=== PATIENT | female | born 1975 | race Caucasian/White ===

== ENCOUNTER 2018-07-23 16:46 | Emergency (ER) | payer BC, OTHER ==
--- NOTE | 2018-07-23 17:21 | EDM.PDOC ---
ED HPI GENERAL MEDICAL PROBLEM - General Chief Complaint: Respiratory Problem Stated Complaint: SOB,COUGH Time Seen by Provider: 07/23/18 17:20 Source of Information: Reports: Patient History Limitations: Reports: No Limitations - History of Present Illness INITIAL COMMENTS - FREE TEXT/NARRATIVE: HISTORY AND PHYSICAL: History of present illness: Patient is a 42-year-old female here with complaint of cough x 6 days. She states she coughs up a bunch on phelgm in the mornings, has been feeling like she can't take a full breath. She felt feverish today with chills but denies nausea, vomiting, diarrhea, chest pain, abdominal pain. Denies significant past medication history. Smokes 1ppd x 20+ years. Review of systems: As per history of present illness and below otherwise all systems reviewed and negative. Past medical history: As per history of present illness and as reviewed below otherwise noncontributory. Surgical history: As per history of present illness and as reviewed below otherwise noncontributory. Social history: No reported history of drug or alcohol abuse. Family history: As per history of present illness and as reviewed below otherwise noncontributory. Physical exam: General: Patient sitting comfortably in no acute distress and nontoxic appearing HEENT: Atraumatic, normocephalic, pupils reactive, negative for conjunctival pallor or scleral icterus, mucous membranes moist, throat clear, neck supple, nontender, trachea midline. No meningeal signs. Lungs: Clear to auscultation, breath sounds equal bilaterally, chest nontender. Heart: S1S2, regular, negative for clicks, rubs, or overt murmur. Abdomen: Soft, nondistended, nontender. Negative for masses or hepatosplenomegaly. Negative for costovertebral tenderness. Pelvis: Stable nontender. Genitourinary: Deferred. Rectal: Deferred. Extremities: Atraumatic, negative for cords or calf pain. Neurovascular unremarkable. Neuro: Awake, alert, oriented. Cranial nerves II through XII unremarkable. Cerebellum unremarkable. Motor and sensory unremarkable throughout. Exam nonfocal. Notes: Diagnostics: Influenza, chest x-ray Therapeutics: None Prescriptions: Azithromycin, Medrol dosepak, ventolin inhaler Impression: Acute bronchitis Plan: 1. Take medications as instructed 2. Follow up with primary care provider 3. Return to ED as needed as discussed Definitive disposition and diagnosis as appropriate pending reevaluation and review of above. headache Pain Score (Numeric/FACES): 3 - Related Data Allergies Allergy/AdvReac Type Severity Reaction Status Date / Time umeclidinium Allergy Rash Verified 07/23/18 17:19 [From Anoro Ellipta] vilanterol Allergy Rash Verified 07/23/18 17:19 [From Anoro Ellipta] Home Meds: Home Meds Escitalopram [Lexapro] 20 mg PO DAILY 07/23/18 [History] hydrOXYzine HCl [hydrOXYzine] 1 tab PO ASDIRECTED 07/23/18 [History] Past Medical History HEENT History: Reports: Other (See Below) Other HEENT History: reading glasses, top and bottom dentures (only wears top denture) Respiratory History: Reports: Bronchitis, Recurrent Genitourinary History: Reports: None 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: Musculoskeletal History: Reports: Other (See Below) Other Musculoskeletal History: shouldr pain due to torn right rotator cuff Neurological History: Reports: Migraines, Other (See Below) Psychiatric History: Reports: Anxiety, Depression Endocrine/Metabolic History: Reports: None - Infectious Disease History Infectious Disease History: Reports: Chicken Pox - Past Surgical History Head Surgeries/Procedures: Reports: None HEENT Surgical History: Reports: Tonsillectomy Female Surgical History: Reports: Hysterectomy, Salpingo-Oophorectomy, Tubal Ligation Musculoskeletal Surgical History: Reports: Carpal Tunnel Other Musculoskeletal Surgeries/Procedures:: millie carpal tunnel, trigger finger release Social & Family History - Caffeine Use Caffeine Use: Reports: Coffee, Soda ED ROS GENERAL - Review of Systems Review Of Systems: ROS reveals no pertinent complaints other than HPI. ED EXAM, GENERAL - Physical Exam Exam: See Below (see dictation) Course - Vital Signs Last Recorded V/S: Last Vital Signs Temp 98.3 F 07/23/18 17:15 Pulse 87 07/23/18 17:15 Resp 18 07/23/18 17:15 BP 115/72 07/23/18 17:15 Pulse Ox 98 07/23/18 17:15 - Orders/Labs/Meds Orders: Active Orders 24 hr Category Date Time Status Chest 2V [CR] Stat Exams 07/23/18 17:19 Taken INFLUENZA A+B AG SCREEN [RM] Stat Lab 07/23/18 17:58 Received Departure - Departure Time of Disposition: 18:28 Disposition: Home, Self-Care 01 Condition: Good Clinical Impression: Acute bronchitis - Discharge Information Referrals: Guerrero Garcia Jr, PA-C [Primary Care Provider] - Forms: ED Department Discharge Additional Instructions: The following information is given to patients seen in the emergency department who are being discharged to home. This information is to outline your options for follow-up care. We provide all patients seen in our emergency department with a follow-up referral. The need for follow-up, as well as the timing and circumstances, are variable depending upon the specifics of your emergency department visit. If you don't have a primary care physician on staff, we will provide you with a referral. We always advise you to contact your personal physician following an emergency department visit to inform them of the circumstance of the visit and for follow-up with them and/or the need for any referrals to a consulting specialist. The emergency department will also refer you to a specialist when appropriate. This referral assures that you have the opportunity for follow-up care with a specialist. All of these measure are taken in an effort to provide you with optimal care, which includes your follow-up. Under all circumstances we always encourage you to contact your private physician who remains a resource for coordinating your care. When calling for follow-up care, please make the office aware that this follow-up is from your recent emergency room visit. If for any reason you are refused follow-up, please contact the [facility] Emergency Department at and asked to speak to the emergency department charge nurse. [facility] [address] [place] [address] [id number] [address] [address] 1. Take medications as instructed 2. Follow up with primary care provider 3. Return to ED as needed as discussed - My Orders Last 24 Hours: My Active Orders 07/23/18 17:19 Chest 2V [CR] Stat 07/23/18 17:58 INFLUENZA A+B AG SCREEN [RM] Stat - Assessment/Plan Last 24 Hours: My Active Orders 07/23/18 17:19 Chest 2V [CR] Stat 07/23/18 17:58 INFLUENZA A+B AG SCREEN [RM] Stat
--- NOTE | 2018-07-23 18:33 | CR ---
INDICATION: COUGH. SICK starting last Wednesday. TECHNIQUE PA AND LATERAL chest x-ray. FINDINGS: Mild increased soft tissue convexity along the right lower heart border may be a cardiac fat pad is not specific. No focal infiltrate or consolidation either lung. Heart is normal in size. Mild AC separation on the left with slight superior subluxation of the left lateral clavicle with regard to the acromion likely related prior trauma. Chest otherwise negative without acute disease. Dictated by Tho Short MD @ Jul 23 2018 6:31PM Signed by Dr. Tho Short @ Jul 23 2018 6:31PM
[2018-07-23 18:48] VITALS: BP 127/70
== END 2018-07-23 18:45 | disposition home or self-care (01) ==
LOC: MW.ED 16:46
DX: J20.9 Acute bronchitis, unspecified (principal); Z88.8 Allergy status to other drugs, medicaments and biological substances
CPT/HCPCS: 71046; 71046-26; 87804; 99283

== ENCOUNTER 2018-09-14 06:19 | Day surgery (SDC) | payer BC ==
--- NOTE | 2018-09-14 07:06 | PCM.PREANE ---
Preanesthetic Assessment - Anesthesia/Transfusion/Family Hx Anesthesia History: Prior Anesthesia Without Reaction Family History of Anesthesia Reaction: No Transfusion History: No Prior Transfusion(s) Intubation History: Unknown - Review of Systems General: No Symptoms Pulmonary: No Symptoms Cardiovascular: No Symptoms Gastrointestinal: No Symptoms Neurological: No Symptoms Other: Reports: None - Physical Assessment NPO Status Date: 09/13/18 NPO Status Time: 23:00 O2 Sat by Pulse Oximetry: 95 Respiratory Rate: 16 Vital Signs: Last Vital Signs Temp 97.3 F 09/14/18 06:50 Pulse 72 09/14/18 06:50 Resp 16 09/14/18 06:50 BP 102/65 09/14/18 06:50 Pulse Ox 95 09/14/18 06:50 Height: 5 ft 3 in Weight: 79.379 kg ASA Class: 2 Mental Status: Alert & Oriented x3 Airway Class: Mallampati = 2 Dentition: Reports: Dentures ROM/Head Extension: Full Lungs: Clear to Auscultation, Normal Respiratory Effort Cardiovascular: Regular Rate, Regular Rhythm - Allergies Allergies/Adverse Reactions: Allergies Allergy/AdvReac Type Severity Reaction Status Date / Time umeclidinium Allergy Rash Verified 09/09/18 09:05 [From Anoro Ellipta] vilanterol Allergy Rash Verified 09/09/18 09:05 [From Anoro Ellipta] - Blood Blood Available: No - Anesthesia Plan Pre-Op Medication Ordered: None - Acknowledgements Anesthesia Type Planned: MAC Pt an Appropriate Candidate for the Planned Anesthesia: Yes Alternatives and Risks of Anesthesia Discussed w Pt/Guardian: Yes Pt/Guardian Understands and Agrees with Anesthesia Plan: Yes Additional Comments: PMH: anx/ dep and healaches- all resolved significantly since started on lexapro PLAN: mac PreAnesthesia Questionnaire HEENT History: Reports: None Other HEENT History: reading glasses, top and bottom dentures (only wears top denture) Respiratory History: Reports: Bronchitis, Recurrent Genitourinary History: Reports: None SPACE OPERATIONS History: Reports: Musculoskeletal History: Reports: Other (See Below) Other Musculoskeletal History: shouldr pain due to torn right rotator cuff Neurological History: Reports: Migraines, Other (See Below) Psychiatric History: Reports: Anxiety, Depression Endocrine/Metabolic History: Reports: Obesity/BMI 30+ - Infectious Disease History Infectious Disease History: Reports: Chicken Pox - Past Surgical History HEENT Surgical History: Reports: Tonsillectomy Female Surgical History: Reports: Hysterectomy, Salpingo-Oophorectomy, Tubal Ligation Musculoskeletal Surgical History: Reports: Carpal Tunnel, Shoulder Surgery, Other (See Below) Other Musculoskeletal Surgeries/Procedures:: Left shoulder biceps tendon repair , previous right hand ring finger trigger release, bilateral CTR - SUBSTANCE USE Smoking Status *Q: Current Every Day Smoker Tobacco Use Within Last Twelve Months: Cigarettes Recreational Drug Use History: Yes - HOME MEDS Home Medications: Home Meds Escitalopram [Lexapro] 20 mg PO BEDTIME 07/23/18 [History] Doxepin [SINEquan] 10 mg PO BEDTIME 09/09/18 [History] - CURRENT (IN HOUSE) MEDS Current Meds: Current Medications Bupivacaine HCl/Epinephrine Bitart (Marcaine 0.25%/Epinephrine 1:200,000) 10 ml INJECT ONETIME ONE Stop: 09/14/18 08:01 Cefazolin Sodium/Dextrose 2 gm (/ Premix) 50 mls @ 100 mls/hr IV ONETIME ONE Stop: 09/14/18 08:29 Lactated Ringer's (Ringers, Lactated) 1,000 mls @ 125 mls/hr IV ASDIRECTED KATIE Last Admin: 09/14/18 07:00 Dose: 125 mls/hr
[2018-09-14] MEDS ORDERED: Bupivacaine 0.25%/EPINEPHrine 1:200,000 10 ML SDV ONE (07:13)
[2018-09-14] MEDS ORDERED: Propofol 200 MG/20 ML SDV ONE (07:18)
[2018-09-14] MEDS ORDERED: fentaNYL 250 MCG/5 ML SDV ONE (07:18)
[2018-09-14] MEDS ORDERED: Midazolam 1 MG/ML 2 ML SDV ONE (07:21)
[2018-09-14] MEDS ORDERED: Lactated Ringers 1,000 ML IV SCH (08:00)
[2018-09-14] MEDS ORDERED: ceFAZolin/Dextrose,Iso-Osmotic 2 GM/50 ML Duplex Bag IV ONE (08:00)
[2018-09-14] MEDS ORDERED: Bupivacaine 0.25%/EPINEPHrine 1:200,000 10 ML SDV INJECT ONE (08:00)
[2018-09-14] MEDS ORDERED: ceFAZolin 2 GM in Premix Bag 1 BAG IV ONE (08:00)
--- NOTE | 2018-09-14 08:46 | PCM.POSTAN ---
POST ANESTHESIA ASSESSMENT - MENTAL STATUS Mental Status: Alert, Oriented - RESPIRATORY Respiratory Status: Respiratory Rate WNL, Airway Patent, O2 Saturation Stable - CARDIOVASCULAR CV Status: Pulse Rate WNL, Blood Pressure Stable - GASTROINTESTINAL GI Status: No Symptoms - POST OP HYDRATION Hydration Status: Adequate & Stable
--- NOTE | 2018-09-14 08:46 | PCM48HPAN ---
Post Anesthesia Note - EVALUATION WITHIN 48HRS OF ANESTHETIC Vital Signs in Normal Range: Yes Patient Participated in Evaluation: Yes Respiratory Function Stable: Yes Airway Patent: Yes Cardiovascular Function Stable: Yes Hydration Status Stable: Yes Pain Control Satisfactory: Yes Nausea and Vomiting Control Satisfactory: Yes Mental Status Recovered: Yes Resp Rate: 11
[2018-09-14 11:28] VITALS: BP 118/72
--- NOTE | 2018-09-15 08:12 | PCM.OPNOTE ---
- General Post-Op/Procedure Note Date of Surgery/Procedure: 09/15/18 Operative Procedure(s): release of right middle finger trigger finger Pre Op Diagnosis: right middle finger trigger finger Post-Op Diagnosis: Same Anesthesia Technique: Local, MAC Primary Surgeon: Shy Dillard Financial Aid Counselor: Maria Dolores Starks Complications: None Condition: Good
--- NOTE | 2018-09-15 14:40 | OR ---
SURGEON: ISELA GUERRA MD DATE OF PROCEDURE: 09/14/2018 PREOPERATIVE DIAGNOSIS: Right middle finger trigger finger. POSTOPERATIVE DIAGNOSIS: Right middle finger trigger finger. PROCEDURE: Release of right middle finger trigger finger. UNINDENTURED APPRENTICE: KOKI Crowder. REASON FOR AND ROLE OF UNINDENTURED APPRENTICE: Retraction, prepping, draping, positioning and closure assistance. ANESTHESIA: Local MAC. INDICATIONS: Ms. Murphy is a 42-year-old female seen today in evaluation for right middle finger trigger finger. She has had several trigger fingers before and then she has failed conservative management. She would like to proceed. PROCEDURE IN DETAIL: After informed consent was obtained and placed on the chart, the patient was brought to the operating theater and laid in supine position. After informed consent was obtained, the area was prepped and draped, and time-out was completed to confirm side and site. 0.25% Marcaine with epinephrine was injected into a digital block. After adequate anesthesia, a #15 blade was used to dissect through the skin through the subcutaneous tissues until breach of the ligament. The ligament was dissected distally and proximally under direct visualization. Once adequately released, the wound was copiously irrigated and closed using 5-0 nylon stitch in a horizontal mattress fashion. The wound was dressed with Xeroform, fluffs, and a Kerlix gauze dressing and 2-inch Dereck wrap. The patient tolerated this well. All counts and needles were correct at the end of the case. FOLLOWUP INSTRUCTIONS: The patient was given a prescription for pain control, though she did have problems initially getting this under control previously. We did instruct use of ibuprofen and Tylenol [id number] as well as needed as well as other modalities. All questions answered. Discharged home in stable condition. STEVEN / RODRIGO /[id number]
== END 2018-09-14 10:00 | disposition home or self-care (01) ==
LOC: MW.SDS 06:19
PROVIDERS: ATTEND Plastic Surgery
DX: M65.331 Trigger finger, right middle finger (principal); F17.210 Nicotine dependence, cigarettes, uncomplicated; F41.9 Anxiety disorder, unspecified; F32.9 Major depressive disorder, single episode, unspecified; Z88.8 Allergy status to other drugs, medicaments and biological substances; Z79.899 Other long term (current) drug therapy
CPT/HCPCS: 26055; J0690; J2250; J2704; J3010; J3490; J7120; 01810

== ENCOUNTER 2019-03-22 06:58 | Day surgery (SDC) | payer BC ==
[2019-03-22] MEDS ORDERED: Midazolam 1 MG/ML 2 ML SDV ONE (07:34)
[2019-03-22] MEDS ORDERED: Propofol 200 MG/20 ML SDV ONE (07:34)
[2019-03-22] MEDS ORDERED: fentaNYL 100 MCG/2 ML SDV ONE (07:34)
[2019-03-22] MEDS ORDERED: Bupivacaine 0.5% 30 ML SDV ONE (07:43)
[2019-03-22] MEDS ORDERED: fentaNYL 100 MCG/2 ML SDV IVPUSH PRN (07:53)
[2019-03-22] MEDS ORDERED: Lactated Ringers 1,000 ML IV SCH (08:00)
--- NOTE | 2019-03-22 08:17 | PCM.PREANE ---
Preanesthetic Assessment - Anesthesia/Transfusion/Family Hx Anesthesia History: Prior Anesthesia Without Reaction Family History of Anesthesia Reaction: No Transfusion History: No Prior Transfusion(s) Intubation History: Unknown - Review of Systems General: No Symptoms Pulmonary: No Symptoms Cardiovascular: No Symptoms Gastrointestinal: No Symptoms Neurological: No Symptoms Other: Reports: None - Physical Assessment Vital Signs: Last Vital Signs Temp 36.8 C 03/22/19 07:52 Pulse 67 03/22/19 07:52 Resp 16 03/22/19 07:52 BP 113/64 03/22/19 07:52 Pulse Ox 96 03/22/19 07:52 Height: 5 ft 3 in Weight: 79.379 kg ASA Class: 2 Mental Status: Alert & Oriented x3 Airway Class: Mallampati = 2 Dentition: Reports: Normal Dentition Thyro-Mental Finger Breadths: 3 Mouth Opening Finger Breadths: 3 ROM/Head Extension: Full Lungs: Clear to Auscultation, Normal Respiratory Effort Cardiovascular: Regular Rate, Regular Rhythm - Allergies Allergies/Adverse Reactions: Allergies Allergy/AdvReac Type Severity Reaction Status Date / Time diclofenac Allergy Rash Verified 03/20/19 11:41 umeclidinium Allergy Rash Verified 03/20/19 11:41 [From Anoro Ellipta] vilanterol Allergy Rash Verified 03/20/19 11:41 [From Anoro Ellipta] - Blood Blood Available: No - Anesthesia Plan Pre-Op Medication Ordered: None - Acknowledgements Anesthesia Type Planned: MAC Pt an Appropriate Candidate for the Planned Anesthesia: Yes Alternatives and Risks of Anesthesia Discussed w Pt/Guardian: Yes Pt/Guardian Understands and Agrees with Anesthesia Plan: Yes PreAnesthesia Questionnaire HEENT History: Reports: Allergic Rhinitis, Other (See Below) Other HEENT History: reading glasses, top and bottom dentures (only wears top denture) Respiratory History: Reports: Bronchitis, Recurrent Genitourinary History: Reports: None 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: Musculoskeletal History: Reports: Other (See Below) Other Musculoskeletal History: shoulder pain due to torn right rotator cuff, left ring trigger finger Neurological History: Reports: Migraines Psychiatric History: Reports: Anxiety, Depression Endocrine/Metabolic History: Reports: Obesity/BMI 30+ - Infectious Disease History Infectious Disease History: Reports: Chicken Pox - Past Surgical History Head Surgeries/Procedures: Reports: None HEENT Surgical History: Reports: Tonsillectomy Female Surgical History: Reports: Hysterectomy, Salpingo-Oophorectomy, Tubal Ligation Musculoskeletal Surgical History: Reports: Carpal Tunnel, Shoulder Surgery, Other (See Below) Other Musculoskeletal Surgeries/Procedures:: Left shoulder biceps tendon repair , previous right hand ring and middle finger trigger release, bilateral CTR - SUBSTANCE USE Smoking Status *Q: Current Every Day Smoker Tobacco Use Within Last Twelve Months: Cigarettes Recreational Drug Use History: No - HOME MEDS Home Medications: Home Meds Escitalopram [Lexapro] 20 mg PO BEDTIME 07/23/18 [History] - CURRENT (IN HOUSE) MEDS Current Meds: Current Medications Fentanyl (Sublimaze) 50 - 100 mcg IVPUSH Q5M PRN PRN Reason: Pain (severe 7-10) Last Admin: 03/22/19 08:05 Dose: 50 mcg Lactated Ringer's (Ringers, Lactated) 1,000 mls @ 125 mls/hr IV ASDIRECTED KATIE Last Admin: 03/22/19 07:40 Dose: 125 mls/hr Discontinued Medications Bupivacaine HCl (Marcaine 0.5%) Confirm Administered Dose 30 ml .ROUTE .STK-MED ONE Stop: 03/22/19 07:44 Fentanyl (Sublimaze) Confirm Administered Dose 100 mcg .ROUTE .STK-MED ONE Stop: 03/22/19 07:35 Midazolam HCl (Versed 1 Mg/Ml) Confirm Administered Dose 2 mg .ROUTE .STK-MED ONE Stop: 03/22/19 07:35 Propofol (Diprivan 20 Ml) Confirm Administered Dose 400 mg .ROUTE .STK-MED ONE Stop: 03/22/19 07:35
[2019-03-22] MEDS ORDERED: ceFAZolin 1 GM Vial ONE (09:00)
[2019-03-22] MEDS ORDERED: Sodium Chloride 0.9% 20 ML ONE (09:00)
--- NOTE | 2019-03-22 09:31 | PCM.OPNOTE ---
- General Post-Op/Procedure Note Date of Surgery/Procedure: 03/22/19 Operative Procedure(s): left ring finger trigger finger release Pre Op Diagnosis: left ring finger trigger ringer Anesthesia Technique: Local, MAC Primary Surgeon: Sudhakar Mcgill Negotiator: Tracy Alvarado EBL in mLs: 0 Complications: None Condition: Good
--- NOTE | 2019-03-22 10:39 | PCM48HPAN ---
Post Anesthesia Note - EVALUATION WITHIN 48HRS OF ANESTHETIC Vital Signs in Normal Range: Yes Patient Participated in Evaluation: Yes Respiratory Function Stable: Yes Airway Patent: Yes Cardiovascular Function Stable: Yes Hydration Status Stable: Yes Pain Control Satisfactory: Yes Nausea and Vomiting Control Satisfactory: Yes Mental Status Recovered: Yes Vital Signs: Last Vital Signs Temp 36.8 C 03/22/19 07:52 Pulse 61 03/22/19 09:54 Resp 14 03/22/19 09:54 BP 122/69 03/22/19 09:54 Pulse Ox 94 L 03/22/19 09:54 - COMMENTS/OBSERVATIONS Free Text/Narrative:: no anesthesia problems
--- NOTE | 2019-03-22 10:39 | PCM.POSTAN ---
POST ANESTHESIA ASSESSMENT - MENTAL STATUS Mental Status: Alert, Oriented - VITAL SIGNS Vital Signs: Last Vital Signs Temp 36.8 C 03/22/19 07:52 Pulse 61 03/22/19 09:54 Resp 14 03/22/19 09:54 BP 122/69 03/22/19 09:54 Pulse Ox 94 L 03/22/19 09:54 - RESPIRATORY Respiratory Status: Respiratory Rate WNL, Airway Patent, O2 Saturation Stable - CARDIOVASCULAR CV Status: Pulse Rate WNL, Blood Pressure Stable - GASTROINTESTINAL GI Status: No Symptoms - PAIN Pain Score: 0 - POST OP HYDRATION Hydration Status: Adequate & Stable - OBSERVATIONS Free Text/Narrative:: no anesthesia problems
[2019-03-22 11:42] VITALS: BP 130/63; PULSE 67
--- NOTE | 2019-03-24 11:59 | OR ---
SURGEON: Sudhakar Mcgill DO DATE OF PROCEDURE: 03/22/2019 PREOPERATIVE DIAGNOSIS: Left ring trigger finger. POSTOPERATIVE DIAGNOSIS: Left ring trigger finger. PROCEDURE: Left ring finger trigger finger release. PRIMARY SURGEON: Sudhakar Mcgill DO BAR TACKER: LINCOLN Marquis Nurse practitioner, LINCOLN Marquis, played an essential role in assisting in this case, helping to position the patient, retract structures as needed, as well as suturing and cutting sutures as indicated. Her presence improved patient's safety and decreased operative time. ANESTHESIA: MAC local. FLUID: Lactated Ringer solution. ESTIMATED BLOOD LOSS: 0. COMPLICATIONS: None. SPECIMENS: None. DISCHARGE DISPOSITION: Stable to the PACU. HISTORY AND INDICATIONS FOR THE PROCEDURE: The patient was seen preoperatively in the clinic. She had had some triggering of her left ring finger for some time. She had previous trigger fingers released in the past and was very familiar with the procedure. Risks and goals of the procedure were explained to the patient. Informed consent was obtained. DETAILS OF PROCEDURE: The patient was seen preoperatively by myself and Anesthesia staff in the preoperative holding area, where the operative site was marked. She was brought to the operative suite by Anesthesia staff, where a well-padded tourniquet was placed on her left forearm. MAC local anesthesia was administered. The left upper extremity was then prepped and draped in a sterile manner. A time-out was called, identifying the correct patient, the correct procedure, the correct site, and that antibiotics had been given in an appropriate period of time. I injected local around my incision site, which was over the A1 yamila, which was palpable on the left 4th ray. I then made a longitudinal incision approximately 1.5 cm and then used a self-retaining retractor. I then used my 15 blade to clear off the soft tissue over the A1 yamila. The A1 yamila was then identified and then incised through its length. After this had been accomplished, I release my retractor, then copiously irrigated with saline, and then closed with 3-0 nylon in a horizontal mattress manner. We then placed Betadine-soaked Adaptic sponges and an Dereck wrap. The patient was allowed to wake up from MAC anesthesia. The tourniquet was let down, and the patient was allowed to go to the PACU in stable condition. [id number] / MODL /[id number]
== END 2019-03-22 11:00 | disposition home or self-care (01) ==
LOC: MW.SDS 06:58
PROVIDERS: ATTEND Orthopaedic Surgery
DX: M65.342 Trigger finger, left ring finger (principal); M19.019 Primary osteoarthritis, unspecified shoulder; G43.909 Migraine, unspecified, not intractable, without status migrainosus; F17.210 Nicotine dependence, cigarettes, uncomplicated; F41.9 Anxiety disorder, unspecified; F32.9 Major depressive disorder, single episode, unspecified; Z88.8 Allergy status to other drugs, medicaments and biological substances
CPT/HCPCS: 26055; J0690; J2250; J2704; J3010; J3490; J7120

== ENCOUNTER 2020-01-23 12:00 | Day surgery (SDC) | payer BC, MEDICAID ==
[2020-01-23] MEDS ORDERED: Iopamidol 200-M 10 ML vial ITHECAL ONE (13:30)
[2020-01-23] MEDS ORDERED: Lidocaine 2% 5 ML SDV INJECT ONE (13:30)
[2020-01-23] MEDS ORDERED: Ropivacaine 0.5% 5 MG/ML 30 ML SDV INJECT ONE (13:30)
[2020-01-23] MEDS ORDERED: Betamethasone Acetate/Betamethasone Sod Phosphate 30 MG/5 ML MDV EPIDUR ONE (13:30)
--- NOTE | 2020-01-23 17:16 | OR ---
SURGEON: Elif Everett D.O. DATE OF PROCEDURE: 01/23/2020 PRIMARY SURGEON: Elif Everett D.O. ASSISTANTS: OR Staff Present: 1. Owen Malave RN. 2. Luis Manuel Frye RN. 3. Luis Manuel Ragland, RT. WOUND CLASS: I. PREOPERATIVE DIAGNOSES: 1. Lumbar degenerative disk disease, L5-S1. 2. Left S1 radiculopathy. POSTOPERATIVE DIAGNOSES: 1. Lumbar degenerative disk disease, L5-S1. 2. Left S1 radiculopathy. PROCEDURES PERFORMED: 1. Left transforaminal epidural steroid injection. 2. Fluoroscopic guidance for needle placement. 3. Local with oral Valium for sedation. SCREENING QUESTIONS: The patient answered "no" to all of the following questions: 1. Are you allergic to iodine, Betadine or latex? 2. Do you have a bleeding disorder? 3. Do you have any joint replacements, heart valve replacements, or a pacemaker? 4. Are you allergic to anti-inflammatories or blood thinners? 5. Do you have any current local or systemic infections? MEDICAL NECESSITY: This is a patient with a history of chronic low back pain and lower extremity radicular pain in the above dermatomal pattern that comes in for the above diagnostic and therapeutic procedure. Pertinent positives and negatives for this suspected disease process along with the diagnostic findings and testing are in the patient's history and physical exam. The most salient feature includes radicular pain in the above dermatomal pattern. The patient had failed attempts at conservative therapy including physical therapy, nonsteroidal anti- inflammatory drugs, and other medications. No contraindications to perform this procedure including medical, no bleeding disorders or infections, no psychological, no antisocial personality disorder or active addiction disorder. There are no work-related issues, and, in general, the patient does not have any history of multiple prior interventions, surgeries or nerve blocks which have failed to return the patient to function. The patient's other symptoms to be treated include numbness, paresthesia, dysesthesia or hypoesthesia referred into the left lower extremity or any weakness in the involved myotome. This procedure is being performed in accordance with national guidelines as written by the [employer] ([place]). DESCRIPTION OF PROCEDURE: The patient had the procedure thoroughly explained including risks, benefits and alternatives. Consent was signed in my clinic indicating understanding and willingness to proceed. The patient presented to [facility] [place] where the patient was escorted to the dressing room to disrobe and change into a hospital gown. Preoperative vital signs were taken and stable. The patient reported that Valium was taken prior to the procedure. The patient was brought to the procedure room and placed in the prone position on the table. A pillow was placed under the abdomen in order to flatten the lumbar lordosis. The back was prepped with ChloraPrep and sterilely draped. All personnel in the operating room were dressed in appropriate attire including surgical scrubs, head and shoe covers. This was to ensure sterility while in the treatment room. During the time fluoroscopy was in use, all personnel in the operating room wore lead salas with thyroid collars. Sterile technique was used during the procedure. The fluoroscope was placed for the left transforaminal epidural steroid injection. There was no sign of infection at the skin site for needle insertion. The skin was anesthetized with 2% lidocaine with a 27 gauge 1-1/2 inch needle. Then a 22 gauge 3-1/2 inch spinal needle, advanced to the left. Under direct fluoroscopic guidance needle position was verified in three views; AP, oblique and lateral, with 0.2 cubic centimeters increments of Isovue-200 dye. No intravascular flow pattern was observed under live fluoroscopy. Then 12 milligrams of Celestone was slowly injected after negative aspiration of heme, cerebrospinal fluid and no paresthesias were noted. The needle was cleared prior to removal from the skin. No adverse reactions were noted. The patient was brought to the recovery room awake and in good condition by my staff. The patient was monitored and discharge instructions were given after a brief stay in the recovery area. Both oral and written discharge and follow up instructions were given. The patient will follow up in the clinic in 3-4 weeks post procedure to evaluate the efficacy. The patient verbalized understanding including understanding of those signs and symptoms that would require emergency care and knows how to contact the office if there are any problems or questions in the meantime. PREOPERATIVE PAIN: 6/10 POSTOPERATIVE PAIN: 0/10 FOLLOWUP: In the Pain Clinic in one month. HOGLCHR / ELVERL /[id number]
== END 2020-01-23 14:35 | disposition home or self-care (01) ==
LOC: MW.SDS 12:00
PROVIDERS: ATTEND Anesthesiology
DX: M51.16 Intervertebral disc disorders with radiculopathy, lumbar region (principal); F41.9 Anxiety disorder, unspecified; F32.9 Major depressive disorder, single episode, unspecified; F17.210 Nicotine dependence, cigarettes, uncomplicated; M47.27 Other spondylosis with radiculopathy, lumbosacral region; M48.061 Spinal stenosis, lumbar region without neurogenic claudication; Q76.49 Other congenital malformations of spine, not associated with scoliosis; Z88.8 Allergy status to other drugs, medicaments and biological substances; Z79.899 Other long term (current) drug therapy
CPT/HCPCS: 64483; J0702; J2001; J2795; Q9966

== ENCOUNTER 2020-02-22 12:06 | Day surgery (SDC) | payer BC, MEDICAID ==
[2020-02-22] MEDS ORDERED: Lidocaine 2% 5 ML SDV INJECT ONE (13:30)
[2020-02-22] MEDS ORDERED: Betamethasone Acetate/Betamethasone Sod Phosphate 30 MG/5 ML MDV EPIDUR ONE (13:30)
[2020-02-22] MEDS ORDERED: Iopamidol 200-M 10 ML vial ITHECAL ONE (13:30)
[2020-02-22] MEDS ORDERED: Ropivacaine 0.5% 5 MG/ML 30 ML SDV INJECT ONE (13:30)
--- NOTE | 2020-02-22 19:51 | OR ---
SURGEON: Elif Everett D.O. DATE OF PROCEDURE: 02/22/2020 PRIMARY SURGEON: Eilf Everett DO ASSISTANTS: OR staff present: 1. Tori Gutiérrez RN. 2. Luis Manuel Frye RN. 3. Bolivar Ballesteros RT. WOUND CLASS: I. PREOPERATIVE DIAGNOSES: 1. Lumbar degenerative disk disease, L4-5 and L5-S1. 2. Lumbar radiculopathy, L5-S1, bilateral lower extremities. 3. Chronic pain syndrome. POSTOPERATIVE DIAGNOSES: 1. Lumbar degenerative disk disease, L4-5 and L5-S1. 2. Lumbar radiculopathy, L5-S1, bilateral lower extremities. 3. Chronic pain syndrome. PROCEDURES PERFORMED: 1. Left S1 transforaminal epidural steroid injection. 2. Fluoroscopic guidance for needle placement. 3. Local with oral Valium for sedation. SCREENING QUESTIONS: The patient answered "no" to all of the following questions: 1. Are you allergic to iodine, Betadine or latex? 2. Do you have a bleeding disorder? 3. Do you have any joint replacements, heart valve replacements, or a pacemaker? 4. Are you allergic to anti-inflammatories or blood thinners? 5. Do you have any current local or systemic infections? MEDICAL NECESSITY: This is a patient with a history of chronic low back pain and lower extremity radicular pain in the above dermatomal pattern that comes in for the above diagnostic and therapeutic procedure. Pertinent positives and negatives for this suspected disease process along with the diagnostic findings and testing are in the patient's history and physical exam. The most salient feature includes radicular pain in the above dermatomal pattern. The patient had failed attempts at conservative therapy including physical therapy, nonsteroidal anti- inflammatory drugs, and other medications. No contraindications to perform this procedure including medical, no bleeding disorders or infections, no psychological, no antisocial personality disorder or active addiction disorder. There are no work-related issues, and, in general, the patient does not have any history of multiple prior interventions, surgeries or nerve blocks which have failed to return the patient to function. The patient's other symptoms to be treated include numbness, paresthesia, dysesthesia or hypoesthesia referred into the left lower extremity or any weakness in the involved myotome. This procedure is being performed in accordance with national guidelines as written by the International [employer] ([place]). DESCRIPTION OF PROCEDURE: The patient had the procedure thoroughly explained including risks, benefits and alternatives. Consent was signed in my clinic indicating understanding and willingness to proceed. The patient presented to [facility] [place] where the patient was escorted to the dressing room to disrobe and change into a hospital gown. Preoperative vital signs were taken and stable. The patient reported that Valium was taken prior to the procedure. The patient was brought to the procedure room and placed in the prone position on the table. A pillow was placed under the abdomen in order to flatten the lumbar lordosis. The back was prepped with ChloraPrep and sterilely draped. All personnel in the operating room were dressed in appropriate attire including surgical scrubs, head and shoe covers. This was to ensure sterility while in the treatment room. During the time fluoroscopy was in use, all personnel in the operating room wore lead salas with thyroid collars. Sterile technique was used during the procedure. The fluoroscope was placed for the left S1 transforaminal epidural steroid injection. There was no sign of infection at the skin site for needle insertion. The skin was anesthetized with 2% lidocaine with a 27 gauge 1-1/2 inch needle. Then, a 22 gauge 3-1/2 inch spinal needle, advanced to the left S1. Under direct fluoroscopic guidance needle position was verified in three views; AP, oblique and lateral, with 0.2 cubic centimeters increments of Isovue- 200 dye. No intravascular flow pattern was observed under live fluoroscopy. Then 12 milligrams of Celestone was slowly injected after negative aspiration of heme, cerebrospinal fluid and no paresthesias were noted. The needle was cleared prior to removal from the skin. No adverse reactions were noted. The patient was brought to the recovery room awake and in good condition by my staff. The patient was monitored and discharge instructions were given after a brief stay in the recovery area. Both oral and written discharge and follow up instructions were given. The patient will follow up in the clinic in 3-4 weeks post procedure to evaluate the efficacy. The patient verbalized understanding including understanding of those signs and symptoms that would require emergency care and knows how to contact the office if there are any problems or questions in the meantime. PREOPERATIVE PAIN: 5/10. POSTOPERATIVE PAIN: 0/10. FOLLOWUP: In the Pain Clinic in 3 weeks. HUSSEIN / MODL /[id number]
== END 2020-02-22 14:34 ==
LOC: MW.SDS 12:06
PROVIDERS: ATTEND Anesthesiology
DX: G89.4 Chronic pain syndrome (principal); M51.16 Intervertebral disc disorders with radiculopathy, lumbar region; M48.061 Spinal stenosis, lumbar region without neurogenic claudication; F41.9 Anxiety disorder, unspecified; F32.9 Major depressive disorder, single episode, unspecified; F17.210 Nicotine dependence, cigarettes, uncomplicated; M47.27 Other spondylosis with radiculopathy, lumbosacral region; Q76.49 Other congenital malformations of spine, not associated with scoliosis; Z88.8 Allergy status to other drugs, medicaments and biological substances; Z79.899 Other long term (current) drug therapy

== ENCOUNTER 2020-04-04 10:40 | Day surgery (SDC) | payer BC, MEDICAID ==
[2020-04-04] MEDS ORDERED: Iopamidol 200-M 10 ML vial ITHECAL ONE (12:30)
[2020-04-04] MEDS ORDERED: Ropivacaine 0.5% 5 MG/ML 30 ML SDV INJECT ONE (12:30)
[2020-04-04] MEDS ORDERED: Lidocaine 2% 5 ML SDV INJECT ONE (12:30)
[2020-04-04] MEDS ORDERED: Betamethasone Acetate/Betamethasone Sod Phosphate 30 MG/5 ML MDV EPIDUR ONE (12:30)
--- NOTE | 2020-04-04 16:56 | OR ---
SURGEON: Elif Everett D.O. DATE OF PROCEDURE: 04/04/2020 I had the pleasure of seeing Eliana Murphy today. PRIMARY SURGEON: Elif Everett DO ASSISTANTS: OR staff present: 1. Owen Malave RN. 2. Sigifredo Edwards RN. 3. Bolivar Echeverria, RT. WOUND CLASS: I. PREOPERATIVE DIAGNOSES: 1. Lumbar degenerative disk disease, L4-5 and L5-S1. 2. Lumbar spinal stenosis. 3. Lumbar spondylosis. 4. Chronic low back pain with bilateral lower extremity radiculopathy. 5. Transitional vertebrae, L5-S1, with left-sided wedged transverse process. POSTOPERATIVE DIAGNOSES: 1. Lumbar degenerative disk disease, L4-5 and L5-S1. 2. Lumbar spinal stenosis. 3. Lumbar spondylosis. 4. Chronic low back pain with bilateral lower extremity radiculopathy. 5. Transitional vertebrae, L5-S1, with left-sided wedged transverse process. PROCEDURES PERFORMED: 1. Right L5 transforaminal epidural steroid injection. 2. Right S1 transforaminal epidural steroid injection. 3. Fluoroscopic guidance for needle placement. 4. Local with oral Valium for sedation. SCREENING QUESTIONS: The patient answered "no" to all of the following questions: 1. Are you allergic to iodine, Betadine or latex? 2. Do you have a bleeding disorder? 3. Do you have any joint replacements, heart valve replacements, or a ESCRIPTION OF PROCEDURE: The patient had the procedure thoroughly explained including risks, benefits and alternatives. Consent was signed in my clinic indicating understanding and willingness to proceed. The patient presented to [facility] [place] where the patient was escorted to the dressing room to disrobe and change into a hospital gown. Preoperative vital signs were taken and stable. The patient reported that Valium was taken prior to the procedure. The patient was brought to the procedure room and placed in the prone position on the table. A pillow was placed under the abdomen in order to flatten the lumbar lordosis. The back was prepped with ChloraPrep and sterilely draped. All personnel in the operating room were dressed in appropriate attire including surgical scrubs, head and shoe covers. This was to ensure sterility while in the treatment room. During the time fluoroscopy was in use, all personnel in the operating room wore lead salas with thyroid collars. Sterile technique was used during the procedure. The fluoroscope was placed for the right L5 transforaminal epidural steroid injection. There was no sign of infection at the skin site for needle insertion. The skin was anesthetized with 2% lidocaine with a 27 gauge 1-1/2 inch needle. Then, a 22 gauge 3-1/2 inch spinal needle, advanced to the right L5 foramen at the 6 oclock position of the eye of the hollis dog and then advanced inferior and Under direc fluoroscopic guidance needle position was verified in three views; AP, oblique and lateral, with 0.2 cubic centimeters increments of Isovue-200 dye. No intravascular flow pattern was observed under live fluoroscopy. Then 6 milligrams of Celestone was slowly injected after negative aspiration of heme, cerebrospinal fluid and no paresthesias were noted. The needle was cleared prior to removal from the skin. No adverse reactions were noted. The patient was brought to the recovery room awake and in good condition by my staff. The patient was monitored and discharge instructions were given after a brief stay in the recovery area. Both oral and written discharge and follow up instructions were given. The patient will follow up in the clinic in 3-4 weeks post procedure to evaluate the efficacy. The patient verbalized understanding including understanding of those signs and symptoms that would require emergency care and knows how to contact the office if there are any problems or questions in the meantime. PREOPERATIVE PAIN: 6/10. POSTOPERATIVE PAIN: 2/10. FOLLOWUP: In the Pain Clinic in 1 week. HUSSEIN / RODRIGO /[id number] TYRON
== END 2020-04-04 13:02 ==
LOC: MW.SDS 10:40
PROVIDERS: ATTEND Anesthesiology
DX: G89.29 Other chronic pain (principal); M51.16 Intervertebral disc disorders with radiculopathy, lumbar region; M51.17 Intervertebral disc disorders with radiculopathy, lumbosacral region; M47.26 Other spondylosis with radiculopathy, lumbar region; M48.061 Spinal stenosis, lumbar region without neurogenic claudication; Q76.49 Other congenital malformations of spine, not associated with scoliosis; F41.9 Anxiety disorder, unspecified; F17.210 Nicotine dependence, cigarettes, uncomplicated; M62.838 Other muscle spasm; M47.897 Other spondylosis, lumbosacral region; F32.9 Major depressive disorder, single episode, unspecified; Z88.8 Allergy status to other drugs, medicaments and biological substances; Z79.899 Other long term (current) drug therapy

== ENCOUNTER 2020-06-27 11:50 | Day surgery (SDC) | payer MEDICAID ==
[~2020-06-27 11:50] MED LIST: Betamethasone Acetate/Betamethasone Sod Phosphate 30 MG/5 ML MDV EPIDUR ONE; Iopamidol 200-M 10 ML vial ITHECAL ONE; Lidocaine 2% 5 ML SDV INJECT ONE; Ropivacaine 0.5% 5 MG/ML 30 ML SDV INJECT ONE
[2020-06-27] MEDS ORDERED: Lidocaine 2% 5 ML SDV INJECT ONE (12:00)
[2020-06-27] MEDS ORDERED: Iopamidol 200-M 10 ML vial ITHECAL ONE (12:00)
[2020-06-27] MEDS ORDERED: Betamethasone Acetate/Betamethasone Sod Phosphate 30 MG/5 ML MDV EPIDUR ONE (12:00)
[2020-06-27] MEDS ORDERED: Ropivacaine 0.5% 5 MG/ML 30 ML SDV INJECT ONE (12:00)
--- NOTE | 2020-06-27 17:53 | OR ---
SURGEON: Elif Everett D.O. DATE OF PROCEDURE: 06/27/2020 PRIMARY SURGEON: Elif Everett DO ASSISTANTS: OR staff present: 1. Luis Manuel Frye RN. 2. Sigifredo Edwards RN. 3. Tori Ramirez RT. WOUND CLASS: I. PREOPERATIVE DIAGNOSES: 1. Lumbar degenerative disk disease, L4-5 and L5-S1. 2. L5-S1 transitional vertebrae. 3. Chronic low back pain. 4. Left L5-S1 radiculopathy. POSTOPERATIVE DIAGNOSES: 1. Lumbar degenerative disk disease, L4-5 and L5-S1. 2. L5-S1 transitional vertebrae. 3. Chronic low back pain. 4. Left L5-S1 radiculopathy. PROCEDURES PERFORMED: 1. Left S1 transforaminal epidural steroid injection. 2. Fluoroscopic guidance for needle placement. 3. Local with oral Valium for sedation. SCREENING QUESTIONS: The patient answered "no" to all of the following questions: 1. Are you allergic to iodine, Betadine or latex? 2. Do you have a bleeding disorder? 3. Do you have any joint replacements, heart valve replacements, or a pacemaker? 4. Are you allergic to anti-inflammatories or blood thinners? 5. Do you have any current local or systemic infections? MEDICAL NECESSITY: This is a patient with a history of chronic low back pain and lower extremity radicular pain in the above dermatomal pattern that comes in for the above diagnostic and therapeutic procedure. Pertinent positives and negatives for this suspected disease process along with the diagnostic findings and testing are in the patient's history and physical exam. The most salient feature includes radicular pain in the above dermatomal pattern. The patient had failed attempts at conservative therapy including physical therapy, nonsteroidal anti- inflammatory drugs, and other medications. No contraindications to perform this procedure including medical, no bleeding disorders or infections, no psychological, no antisocial personality disorder or active addiction disorder. There are no work-related issues, and, in general, the patient does not have any history of multiple prior interventions, surgeries or nerve blocks which have failed to return the patient to function. The patient's other symptoms to be treated include numbness, paresthesia, dysesthesia or hypoesthesia referred into the left lower extremity or any weakness in the involved myotome. This procedure is being performed in accordance with national guidelines as written by the International Sp[employer]vention [employer] ([place]). DESCRIPTION OF PROCEDURE: The patient had the procedure thoroughly explained including risks, benefits and alternatives. Consent was signed in my clinic indicating understanding and willingness to proceed. The patient presented to [facility] [place] where the patient was escorted to the dressing room to disrobe and change into a hospital gown. Preoperative vital signs were taken and stable. The patient reported that Valium was taken prior to the procedure. The patient was brought to the procedure room and placed in the prone position on the table. A pillow was placed under the abdomen in order to flatten the lumbar lordosis. The back was prepped with ChloraPrep and sterilely draped. All personnel in the operating room were dressed in appropriate attire including surgical scrubs, head and shoe covers. This was to ensure sterility while in the treatment room. During the time fluoroscopy was in use, all personnel in the operating room wore lead salas with thyroid collars. Sterile technique was used during the procedure. The fluoroscope was placed for the left S1 transforaminal epidural steroid injection. There was no sign of infection at the skin site for needle insertion. The skin was anesthetized with 2% lidocaine with a 27 gauge 1-1/2 inch needle. Then, a 22 gauge 3-1/2 inch spinal needle, advanced to the left S1. Under direct fluoroscopic guidance needle position was verified in three views; AP, oblique and lateral, with 0.2 cubic centimeters increments of Isovue- 200 dye. No intravascular flow pattern was observed under live fluoroscopy. Then 12 milligrams of Celestone was slowly injected after negative aspiration of heme, cerebrospinal fluid and no paresthesias were noted. The needle was cleared prior to removal from the skin. No adverse reactions were noted. The patient was brought to the recovery room awake and in good condition by my staff. The patient was monitored and discharge instructions were given after a brief stay in the recovery area. Both oral and written discharge and follow up instructions were given. The patient will follow up in the clinic in 3-4 weeks post procedure to evaluate the efficacy. The patient verbalized understanding including understanding of those signs and symptoms that would require emergency care and knows how to contact the office if there are any problems or questions in the meantime. PREOPERATIVE PAIN: 6 to 8 out of 10. POSTOPERATIVE PAIN: 06/09. FOLLOWUP: In the Pain Clinic in 3 weeks. HUSSEIN / RODRIGO /[id number]
== END 2020-06-27 13:59 ==
LOC: MW.SDS 11:50
PROVIDERS: ATTEND Anesthesiology
DX: G89.29 Other chronic pain (principal); M51.17 Intervertebral disc disorders with radiculopathy, lumbosacral region; M51.16 Intervertebral disc disorders with radiculopathy, lumbar region; M48.061 Spinal stenosis, lumbar region without neurogenic claudication; M47.26 Other spondylosis with radiculopathy, lumbar region; M47.27 Other spondylosis with radiculopathy, lumbosacral region; F17.290 Nicotine dependence, other tobacco product, uncomplicated; Q76.49 Other congenital malformations of spine, not associated with scoliosis; Z88.8 Allergy status to other drugs, medicaments and biological substances; Z79.899 Other long term (current) drug therapy; Z98.890 Other specified postprocedural states
CPT/HCPCS: 64483; J0702; J2001; J2795; Q9966

== ENCOUNTER 2020-07-04 17:12 | Emergency (ER) | payer MEDICAID ==
[2020-07-04 17:31] VITALS: BP 116/80; PULSE 95
[2020-07-04 18:45] LABS: BLOOD UREA NITROGEN,BUN 13 mg/dL (7.0-18.0); CARBON DIOXIDE,CO2 24.4 mmol/L (21.0-32.0); CHLORIDE,CL 102 mmol/L (98-107); GLUCOSE RANDOM 82 mg/dL (74-106); LIPASE 108 U/L (73-393); SODIUM,NA 137 mmol/L (136-145)
--- NOTE | 2020-07-04 19:45 | EDM.PDOC ---
ED HPI GENERAL MEDICAL PROBLEM - General Chief Complaint: Back Pain or Injury Stated Complaint: BACK PAIN Time Seen by Provider: 07/04/20 17:18 Source of Information: Reports: Patient History Limitations: Reports: No Limitations - History of Present Illness INITIAL COMMENTS - FREE TEXT/NARRATIVE: HISTORY AND PHYSICAL: History of present illness: Patient is a 44-year-old female who presents emergency room today with concern of mid back pain. On exam, patient does not point to her back, but rather refers to right flank pain. Patient states she has a history of chronic low b ack pain with multiple bulging disks in the past and has had cortisone injections in her back with Dr. Pond. Patient states that she is on a pain regimen with Dr. Pond and has been doing well. Patient states 2 days ago she started noticing this mid back pain, but rather right flank pain. Patient states that starting this morning, her pain worsened so she came to the emergency room for further evaluation. Patient denies any trauma or injury. Patient denies any loss or retention of bowel bladder function or saddle anesthesia. Patient denies fever, chills, chest pain, shortness of breath, or cough. Denies headache, neck stiff ness, change in vision, syncope, or near syncope. Denies nausea, vomiting, abdominal pain, diarrhea, constipation, or dysuria. Has not noted any blood in urine or stool. Patient has been eating and drinking appropriately. Review of systems: As per history of present illness and below otherwise all systems reviewed and negative. Past medical history: As per history of present illness and as reviewed below otherwise noncontributory. Surgical history: As per history of present illness and as reviewed below otherwise noncontributory. Social history: See social history for further information Family history: As per history of present illness and as reviewed below otherwise noncontributory. Physical exam: General: Patient is alert, oriented, and in no acute distress. Patient sitting comfortably on exam table. Vitals stable and reviewed by me. HEENT: Atraumatic, normocephalic, pupils equal and reactive bilaterally, negative for conjunctival pallor or scleral icterus, mucous membranes moist, TMs normal bilaterally, throat clear, neck supple, nontender, trachea midline. No drooling or trismus noted. No meningeal signs. No hot potato voice noted. Lungs: Clear to auscultation, breath sounds equal bilaterally, chest nontender. Heart: S1S2, regular rate and rhythm without overt murmur Abdomen: Soft, nondistended, pain illicit in the right flank area, otherwise abdomen is nontender; negative garland, negative rebound. Negative for masses or hepatosplenomegaly. Negative for costovertebral tenderness. Pelvis: Stable nontender. Genitourinary: Deferred. Rectal: Deferred. Skin: Intact, warm, dry. No lesions or rashes noted. Extremities/musculoskeletal: No obvious deformity of the complete spine. No step-offs, crepitus, or point tenderness to palpation of the complete spine. Patient has full range of motion of the complete spine without pain or difficulty. SLR intact bilaterally. Heel/Toe gait intact. Patellar reflexes intact bilaterally. Otherwise, atraumatic, negative for cords or calf pain. Neurovascular unremarkable. Neuro: Awake, alert, oriented. Cranial nerves II through XII unremarkable. Cerebellum unremarkable. Motor and sensory unremarkable throughout. Exam nonfocal. Notes: Patient has multiple medication interactions and allergies with various pain medication options. Will give patient 1 tab of Tramadol today in the ED and discussed calling Dr. Pond's clinic in the morning to better discuss pain management with her current medication regime. All incidental findings discussed with patient and importance to have this followed up with womens health / PCP. Strict return precautions thoroughly discussed with patient. Voices understanding and is agreeable to plan of care. Denies any further questions or concerns at this time. Diagnostics: EKG, CBC, CMP, UA, Lipase, Abd/Pelvic CT w cont Therapeutics: Tramadol, NS Prescription: Lidocaine patch Impression: Right flank pain, unspecified Plan: 1. You can alternate ibuprofen and Tylenol as directed for pain and discomfort. 2. Follow-up with your primary care provider/women's health provider as discussed. Return to the ED as needed and as discussed. Definitive disposition and diagnosis as appropriate pending reevaluation and review of above. Lower Back Pain Score (Numeric/FACES): 10 - Related Data Allergies Allergy/AdvReac Type Severity Reaction Status Date / Time diclofenac Allergy Rash Verified 07/04/20 17:31 methocarbamol Allergy Itching Verified 07/04/20 17:31 umeclidinium Allergy Rash Verified 07/04/20 17:31 [From Anoro Ellipta] vilanterol Allergy Rash Verified 07/04/20 17:31 [From Anoro Ellipta] Home Meds: Home Meds Baclofen 07/04/20 [History] Cyclobenzaprine [Flexeril] 07/04/20 [History] Gabapentin [Neurontin] 300 mg PO DAILY 07/04/20 [History] Lidocaine/Menthol [Lidopatch] 1 each TP DAILY PRN #2 adh..patch 07/04/20 [Rx] Sertraline HCl [Zoloft] 07/04/20 [History] Past Medical History HEENT History: Reports: Allergic Rhinitis, Other (See Below) Other HEENT History: reading glasses, top and bottom dentures (only wears top denture) Respiratory History: Reports: Bronchitis, Recurrent Genitourinary History: Reports: None WELL TESTER History: Reports: Musculoskeletal History: Reports: Other (See Below) Other Musculoskeletal History: shoulder pain due to torn right rotator cuff, left ring trigger finger Neurological History: Reports: Migraines Psychiatric History: Reports: Anxiety, Depression Endocrine/Metabolic History: Reports: Obesity/BMI 30+ - Infectious Disease History Infectious Disease History: Reports: Chicken Pox - Past Surgical History Head Surgeries/Procedures: Reports: None HEENT Surgical History: Reports: Tonsillectomy Female Surgical History: Reports: Hysterectomy, Salpingo-Oophorectomy, Tubal Ligation Musculoskeletal Surgical History: Reports: Carpal Tunnel, Shoulder Surgery, Other (See Below) Other Musculoskeletal Surgeries/Procedures:: Left shoulder biceps tendon repair, previous right hand ring and middle finger trigger release, bilateral CTR Social & Family History - Family History Family Medical History: No Pertinent Family History - Tobacco Use Tobacco Use Status *Q: Current Every Day Tobacco User Years of Tobacco use: 30 Packs/Tins Daily: 1 - Caffeine Use Caffeine Use: Reports: None - Recreational Drug Use Recreational Drug Use: No ED ROS GENERAL - Review of Systems Review Of Systems: Comprehensive ROS is negative, except as noted in HPI. ED EXAM, GENERAL - Physical Exam Exam: See Below (see dictation) Course - Vital Signs Last Recorded V/S: Last Vital Signs Temp 97.8 F 07/04/20 17:27 Pulse 95 07/04/20 17:27 Resp 18 07/04/20 17:27 BP 116/80 07/04/20 17:27 Pulse Ox 96 07/04/20 17:27 - Orders/Labs/Meds Orders: Active Orders 24 hr Category Date Time Status EKG Documentation Completion [RC] STAT Care 07/04/20 17:41 Active Abdomen Pelvis w Cont [CT] Stat Exams 07/04/20 19:30 Taken Labs: Laboratory Tests 07/04/20 07/04/20 07/04/20 Range/Units 17:38 17:38 18:11 WBC 14.41 H (4.0-11.0) K/uL RBC 4.73 (4.30-5.90) M/uL Hgb 14.7 (12.0-16.0) g/dL Hct 42.5 (36.0-46.0) % MCV 89.9 (80.0-98.0) fL MCH 31.1 (27.0-32.0) pg MCHC 34.6 (31.0-37.0) g/dL RDW Std Deviation 45.7 (28.0-62.0) fl RDW Coeff of Komal 14 (11.0-15.0) % Plt Count 312 (150-400) K/uL MPV 10.40 (7.40-12.00) fL Neut % (Auto) 62.0 (48.0-80.0) % Lymph % (Auto) 26.7 (16.0-40.0) % Belmont % (Auto) 8.7 (0.0-15.0) % Eos % (Auto) 2.4 (0.0-7.0) % Baso % (Auto) 0.2 (0.0-1.5) % Neut # (Auto) 8.9 H (1.4-5.7) K/uL Lymph # (Auto) 3.9 H (0.6-2.4) K/uL Belmont # (Auto) 1.3 H (0.0-0.8) K/uL Eos # (Auto) 0.3 (0.0-0.7) K/uL Baso # (Auto) 0.0 (0.0-0.1) K/uL Nucleated RBC % 0.0 /100WBC Nucleated RBCs # 0 K/uL Lactate (0.20-2.00) mmol/L Sodium (136-145) mmol/L Potassium (3.5-5.1) mmol/L Chloride (98-107) mmol/L Carbon Dioxide (21.0-32.0) mmol/L BUN (7.0-18.0) mg/dL Creatinine (0.6-1.0) mg/dL Est Cr Clr Drug Dosing mL/min Estimated GFR (MDRD) ml/min Glucose (74-106) mg/dL Calcium (8.5-10.1) mg/dL Total Bilirubin (0.2-1.0) mg/dL AST (15-37) IU/L ALT (14-63) IU/L Alkaline Phosphatase (46-116) U/L Troponin I (0.000-0.056) ng/mL Total Protein (6.4-8.2) g/dL Albumin (3.4-5.0) g/dL Globulin (2.6-4.0) g/dL Albumin/Globulin Ratio (0.9-1.6) Lipase (73-393) U/L Urine Color YELLOW Urine Appearance CLEAR Urine pH 5.5 (5.0-8.0) Ur Specific Dorothy >= 1.030 (1.001-1.035) Urine Protein NEGATIVE (NEGATIVE) mg/dL Urine Glucose (UA) NEGATIVE (NEGATIVE) mg/dL Urine Ketones NEGATIVE (NEGATIVE) mg/dL Urine Occult Blood NEGATIVE (NEGATIVE) Urine Nitrite NEGATIVE (NEGATIVE) Urine Bilirubin NEGATIVE (NEGATIVE) Urine Urobilinogen 0.2 (<2.0) EU/dL Ur Leukocyte Esterase NEGATIVE (NEGATIVE) Urine HCG, Qual NEGATIVE (NEGATIVE) 07/04/20 07/04/20 Range/Units 18:11 19:00 WBC (4.0-11.0) K/uL RBC (4.30-5.90) M/uL Hgb (12.0-16.0) g/dL Hct (36.0-46.0) % MCV (80.0-98.0) fL MCH (27.0-32.0) pg MCHC (31.0-37.0) g/dL RDW Std Deviation (28.0-62.0) fl RDW Coeff of Komal (11.0-15.0) % Plt Count (150-400) K/uL MPV (7.40-12.00) fL Neut % (Auto) (48.0-80.0) % Lymph % (Auto) (16.0-40.0) % Belmont % (Auto) (0.0-15.0) % Eos % (Auto) (0.0-7.0) % Baso % (Auto) (0.0-1.5) % Neut # (Auto) (1.4-5.7) K/uL Lymph # (Auto) (0.6-2.4) K/uL Belmont # (Auto) (0.0-0.8) K/uL Eos # (Auto) (0.0-0.7) K/uL Baso # (Auto) (0.0-0.1) K/uL Nucleated RBC % /100WBC Nucleated RBCs # K/uL Lactate 1.0 (0.20-2.00) mmol/L Sodium 137 (136-145) mmol/L Potassium 4.0 (3.5-5.1) mmol/L Chloride 102 (98-107) mmol/L Carbon Dioxide 24.4 (21.0-32.0) mmol/L BUN 13 (7.0-18.0) mg/dL Creatinine 0.8 (0.6-1.0) mg/dL Est Cr Clr Drug Dosing 74.23 mL/min Estimated GFR (MDRD) > 60.0 ml/min Glucose 82 (74-106) mg/dL Calcium 9.1 (8.5-10.1) mg/dL Total Bilirubin 0.2 (0.2-1.0) mg/dL AST 12 L (15-37) IU/L ALT 20 (14-63) IU/L Alkaline Phosphatase 99 (46-116) U/L Troponin I < 0.050 (0.000-0.056) ng/mL Total Protein 7.3 (6.4-8.2) g/dL Albumin 3.3 L (3.4-5.0) g/dL Globulin 4.0 (2.6-4.0) g/dL Albumin/Globulin Ratio 0.8 L (0.9-1.6) Lipase 108 (73-393) U/L Urine Color Urine Appearance Urine pH (5.0-8.0) Ur Specific Dorothy (1.001-1.035) Urine Protein (NEGATIVE) mg/dL Urine Glucose (UA) (NEGATIVE) mg/dL Urine Ketones (NEGATIVE) mg/dL Urine Occult Blood (NEGATIVE) Urine Nitrite (NEGATIVE) Urine Bilirubin (NEGATIVE) Urine Urobilinogen (<2.0) EU/dL Ur Leukocyte Esterase (NEGATIVE) Urine HCG, Qual (NEGATIVE) Meds: Medications Discontinued Medications Generic Name Dose Route Start Last Admin Trade Name Freq PRN Reason Stop Dose Admin Iopamidol 100 ml 07/04/20 19:49 07/04/20 19:49 Isovue Multipack-370 (76%) IVPUSH 07/04/20 19:50 100 ml ONETIME STA Administration Tramadol HCl 50 mg 07/04/20 20:46 07/04/20 21:08 Ultram PO 07/04/20 20:47 Not Given ONETIME ONE Tramadol HCl 50 mg 07/04/20 20:47 07/04/20 21:07 Ultram PO 07/04/20 20:48 50 mg ONETIME ONE Administration Departure - Departure Time of Disposition: 20:48 Disposition: Home, Self-Care 01 Clinical Impression: Right flank pain - Discharge Information Prescriptions: Lidocaine/Menthol [Lidopatch] 1 each TP DAILY PRN #2 adh..patch PRN Reason: Pain Instructions: Flank Pain, Adult, [id number] Referrals: PCP,Not In Area [Primary Care Provider] - Forms: ED Department Discharge Additional Instructions: The following information is given to patients seen in the emergency department who are being discharged to home. This information is to outline your options for follow-up care. We provide all patients seen in our emergency department with a follow-up referral. The need for follow-up, as well as the timing and circumstances, are variable depending upon the specifics of your emergency department visit. If you don't have a primary care physician on staff, we will provide you with a referral. We always advise you to contact your personal physician following an emergency department visit to inform them of the circumstance of the visit and for follow-up with them and/or the need for any referrals to a consulting specialist. The emergency department will also refer you to a specialist when appropriate. This referral assures that you have the opportunity for follow-up care with a specialist. All of these measure are taken in an effort to provide you with optimal care, which includes your follow-up. Under all circumstances we always encourage you to contact your private physician who remains a resource for coordinating your care. When calling for follow-up care, please make the office aware that this follow-up is from your recent emergency room visit. If for any reason you are refused follow-up, please contact the [facility] Emergency Department at and asked to speak to the emergency department charge nurse. [facility] Primary [facility] [address] [place] [address] [facility] [address] [place] [address] [facility] [address] [place] [address] 1. You can alternate ibuprofen and Tylenol as directed for pain and discomfort. 2. Follow-up with your primary care provider/women's health provider as discussed. Return to the ED as needed and as discussed. Sepsis Event Note (ED) - Evaluation Sepsis Screening Result: No Definite Risk - Focused Exam Vital Signs: Vital Signs Temp Pulse Resp BP Pulse Ox 07/04/20 17:27 97.8 F 95 18 116/80 96 - My Orders Last 24 Hours: My Active Orders 07/04/20 17:41 EKG Documentation Completion [RC] STAT 07/04/20 19:30 Abdomen Pelvis w Cont [CT] Stat - Assessment/Plan Last 24 Hours: My Active Orders 07/04/20 17:41 EKG Documentation Completion [RC] STAT 07/04/20 19:30 Abdomen Pelvis w Cont [CT] Stat
[2020-07-04] MEDS ORDERED: Iopamidol 755 MG/ML 500 ML Multipack Bottle IVPUSH STA (19:49)
[2020-07-04] MEDS ORDERED: traMADol 50 MG Tab PO ONE ×2 (20:46→20:47)
--- NOTE | 2020-07-08 10:43 | CT ---
EXAM DATE: 07/04/20 PATIENT'S AGE: 44 Patient: JESSICA MERCADO Facility: [facility] Site . Site : [id number] Study: CT-Abdomen/Pelvis-07/04/2020 7:52:45 PM Ordering Physician: Kristy Roqeu Final Report: Indication: Right flank pain, leukocytosis Technique: Contrast enhanced axial CT imaging through the abdomen and pelvis. 100 mL Isovue 370 contrast agent was administered intravenously. Sagittal and coronal reconstructions are provided. Comparison: None Findings: No abnormalities are demonstrated relating to the liver, gallbladder, spleen, pancreas, adrenal glands, and kidneys. The portal vein is patent. The abdominal aorta is normal in caliber. There is no abdominal lymphadenopathy. The stomach and duodenum are unremarkable. There is no small bowel wall thickening or abnormal distention. The appendix is noninflamed. There is no colonic wall thickening, mesenteric edema, or intraperitoneal free fluid. Several small cystic lesions are noted in the right adnexa, largest measuring up to 4 cm. The uterus is absent. The urinary bladder is unremarkable. Degenerative changes are noted in the spine. The included lung bases are clear. Impression: 1. Small right adnexal cystic lesions measuring up to 4 cm. Further evaluation is recommended with ultrasound. 2. Otherwise no acute process. No CT findings of pyelonephritis. Correlate clinically. Please note that all CT scans at this facility use dose modulation, iterative reconstruction, and/or weight-based dosing when appropriate to reduce radiation dose to as low as reasonably achievable. Dictated by Hao Mosley MD @ Jul 04 2020 8:17PM Signed by: Hao Mosley MD @07/04/2020 8:17:33 PM (Electronic Signature) Report Signed by Proxy. TYRON
== END 2020-07-04 21:20 | disposition home or self-care (01) ==
LOC: MW.ED 17:12
DX: R10.9 Unspecified abdominal pain (principal); E66.9 Obesity, unspecified; Z72.0 Tobacco use; Z68.35 Body mass index [BMI] 35.0-35.9, adult; Z88.6 Allergy status to analgesic agent; Z88.8 Allergy status to other drugs, medicaments and biological substances; Z79.899 Other long term (current) drug therapy
CPT/HCPCS: 36415; 74177; 80053; 81003; 81025; 83605; 83690; 84484; 85025; 93005; 99284; A9270; Q9967; 93010

== ENCOUNTER 2020-11-12 11:13 | Day surgery (SDC) | payer MEDICAID ==
[2020-11-12] MEDS ORDERED: Ropivacaine 0.5% 5 MG/ML 30 ML SDV INJECT ONE (12:30)
[2020-11-12] MEDS ORDERED: Iopamidol 200-M 10 ML vial ITHECAL ONE (12:30)
[2020-11-12] MEDS ORDERED: Lidocaine 2% 5 ML SDV INJECT ONE (12:30)
[2020-11-12] MEDS ORDERED: Betamethasone Acetate/Betamethasone Sod Phosphate 30 MG/5 ML MDV EPIDUR ONE (12:30)
--- NOTE | 2020-11-12 20:30 | OR ---
SURGEON: Elif Everett D.O. DATE OF PROCEDURE: 11/12/2020 PRIMARY SURGEON: Elif Everett D.O. POULTRY DRESSER: OR staff present: 1. RT Zak. 2. Owen Malave RN. 3. Kelechi Kramer RN. WOUND CLASS: I. PREOPERATIVE DIAGNOSES: 1. Lumbar degenerative disk disease, L5-S1. 2. Transitional vertebrae, L5-S1. 3. Bilateral L5-S1 Radiculopathy. 4. Chronic pain syndrome. POSTOPERATIVE DIAGNOSES: 1. Lumbar degenerative disk disease, L5-S1. 2. Transitional vertebrae, L5-S1. 3. Bilateral [id number]. 4. Chronic pain syndrome. PROCEDURES PERFORMED: 1. Right S1 transforaminal epidural steroid injection. 2. Left S1 transforaminal epidural steroid injection. 3. Fluoroscopic guidance for needle placement. 4. Local with oral Valium for sedation. SCREENING QUESTIONS: The patient answered "no" to all of the following questions: 1. Are you allergic to iodine, Betadine or latex? 2. Do you have a bleeding disorder? 3. Do you have any joint replacements, heart valve replacements, or a pacemaker? 4. Are you allergic to anti-inflammatories or blood thinners? 5. Do you have any current local or systemic infections? DESCRIPTION OF PROCEDURE: The patient had the procedure thoroughly explained including risks, benefits and alternatives. Consent was signed in my clinic indicating understanding and willingness to proceed. The patient presented to [facility] where the patient was escorted to the dressing room to disrobe and change into a hospital gown. Preoperative vital signs were taken and stable. The patient reported that Valium was taken prior to the procedure. The patient was brought to the procedure room and placed in the prone position on the table. A pillow was placed under the abdomen in order to flatten the lumbar lordosis. The back was prepped with ChloraPrep and sterilely draped. All personnel in the operating room were dressed in appropriate attire including surgical scrubs, head and shoe covers. This was to ensure sterility while in the treatment room. During the time fluoroscopy was in use, all personnel in the operating room wore lead salas with thyroid collars. Sterile technique was used during the procedure. The fluoroscope was placed for the right S1 transforaminal epidural steroid injection. There was no sign of infection at the skin site for needle insertion. The skin was anesthetized with 2% lidocaine with a 27 gauge 1-1/2 inch needle. Then a 22 gauge 3-1/2 inch spinal needle, advanced to the right and left S1. Under direct fluoroscopic guidance needle position was verified in three views; AP, oblique and lateral, with 0.2 cubic centimeters increments of Isovue-200 dye. No intravascular flow pattern was observed under live fluoroscopy. Then 6 milligrams of Celestone and local was slowly injected after negative aspiration of heme, cerebrospinal fluid and no paresthesias were noted. The needle was cleared prior to removal from the skin. The procedure was repeated on the left as above for the left S1 transforaminal epidural. No adverse reactions were noted. The patient was brought to the recovery room awake and in good condition by my staff. The patient was monitored and discharge instructions were given after a brief stay in the recovery area. Both oral and written discharge and follow up instructions were given. The patient will follow up in the clinic in 3-4 weeks post procedure to evaluate the efficacy. The patient verbalized understanding including understanding of those signs and symptoms that would require emergency care and knows how to contact the office if there are any problems or questions in the meantime. PREOPERATIVE PAIN: 8/10. POSTOPERATIVE PAIN: 0/10. PLAN: Followup in the pain clinic in 1 month. HUSSEIN / RODRIGO /[id number] TYRON
== END 2020-11-12 13:14 ==
LOC: MW.SDS 11:13
PROVIDERS: ATTEND Anesthesiology
DX: G89.4 Chronic pain syndrome (principal); M51.17 Intervertebral disc disorders with radiculopathy, lumbosacral region; Q76.49 Other congenital malformations of spine, not associated with scoliosis; M47.26 Other spondylosis with radiculopathy, lumbar region; M47.27 Other spondylosis with radiculopathy, lumbosacral region; M48.061 Spinal stenosis, lumbar region without neurogenic claudication; M79.18 Myalgia, other site; F17.210 Nicotine dependence, cigarettes, uncomplicated; Z98.890 Other specified postprocedural states; Z88.8 Allergy status to other drugs, medicaments and biological substances; Z79.899 Other long term (current) drug therapy

== ENCOUNTER 2021-08-16 17:10 | Emergency (ER) | payer MEDICAID ==
[2021-08-16] MEDS ORDERED: Albuterol/Ipratropium 3.0-0.5 MG/3 ML Neb Soln NEB ONE ×2 (18:44→20:38)
[2021-08-16 19:15] LABS: CORONAVIRUS COVID-19 NAA NEGATIVE (NEGATIVE); INFLUENZA A NAA NEGATIVE (NEGATIVE); INFLUENZA B NAA NEGATIVE (NEGATIVE)
[2021-08-16] MEDS ORDERED: predniSONE 20 MG Tab PO STA (20:43)
[2021-08-16] MEDS ORDERED: predniSONE 20 MG Tab PO ONE (21:07)
[2021-08-16 21:17] VITALS: BP 132/96; PULSE 91
[2021-08-17] MEDS ORDERED: predniSONE 20 MG Tab PO SCH (08:00)
== END 2021-08-16 21:16 | disposition home or self-care (01) ==
LOC: MW.ED 17:10
DX: R05.1 Acute cough (principal); R06.00 Dyspnea, unspecified; E66.9 Obesity, unspecified; Z88.8 Allergy status to other drugs, medicaments and biological substances; Z20.822 Contact with and (suspected) exposure to COVID-19; Z88.6 Allergy status to analgesic agent; Z79.52 Long term (current) use of systemic steroids; Z79.2 Long term (current) use of antibiotics; Z79.899 Other long term (current) drug therapy; Z90.710 Acquired absence of both cervix and uterus; Z90.722 Acquired absence of ovaries, bilateral; Z87.891 Personal history of nicotine dependence; Z68.34 Body mass index [BMI] 34.0-34.9, adult
CPT/HCPCS: 0240U; 71045; 94640; 99284; A9270; 99283; J7620-GY

== ENCOUNTER 2022-06-24 08:29 | Day surgery (SDC) | payer MEDICAID ==
[~2022-06-24 08:29] MED LIST changes: -Betamethasone Acetate/Betamethasone Sod Phosphate 30 MG/5 ML MDV EPIDUR ONE; -Iopamidol 200-M 10 ML vial ITHECAL ONE; +Lactated Ringers 1,000 ML IV SCH; -Lidocaine 2% 5 ML SDV INJECT ONE; -Ropivacaine 0.5% 5 MG/ML 30 ML SDV INJECT ONE; +ceFAZolin 2 GM in Premix Bag 1 BAG IV SCH
[2022-06-24] MEDS ORDERED: Dexamethasone 4 MG/ML 5 ML MDV ONE (09:21)
[2022-06-24] MEDS ORDERED: Lidocaine 2% 5 ML SDV ONE (09:21)
[2022-06-24] MEDS ORDERED: Ondansetron 4 MG/2 ML SDV ONE (09:21)
[2022-06-24] MEDS ORDERED: Ketorolac 30 MG/ML SDV ONE (09:21)
[2022-06-24] MEDS ORDERED: Dexmedetomidine 200 MCG/2 ML SDV ONE ×2 (09:21→10:01)
[2022-06-24] MEDS ORDERED: HYDROmorphone 1 MG/ML Syringe IVPUSH PRN (09:26)
[2022-06-24] MEDS ORDERED: Naloxone 0.4 MG/ML SDV IVPUSH PRN (09:26)
[2022-06-24] MEDS ORDERED: Morphine 2 MG/ML SYRINGE IVPUSH PRN (09:26)
[2022-06-24] MEDS ORDERED: Metoclopramide 10 MG/2 ML SDV IVPUSH PRN (09:26)
[2022-06-24] MEDS ORDERED: fentaNYL 50 MCG/ML SDV IVPUSH PRN (09:26)
[2022-06-24] MEDS ORDERED: Albuterol 0.083% 2.5 MG/3 ML Neb Soln NEB PRN (09:26)
[2022-06-24] MEDS ORDERED: Ondansetron 4 MG/2 ML SDV IVPUSH PRN (09:26)
[2022-06-24] MEDS ORDERED: fentaNYL 100 MCG/2 ML SDV ONE (10:00)
[2022-06-24] MEDS ORDERED: Propofol 200 MG/20 ML SDV ONE (10:00)
[2022-06-24] MEDS ORDERED: Water For Injection, Sterile 20 ML ONE (10:06)
[2022-06-24] MEDS ORDERED: Bupivacaine 0.25% 30 ML SDV ONE (10:08)
[2022-06-24 13:37] VITALS: BP 132/62; PULSE 67
== END 2022-06-24 12:20 | disposition home or self-care (01) ==
LOC: MW.SDS 08:29
PROVIDERS: ATTEND Orthopaedic Surgery
DX: M65.352 Trigger finger, left little finger (principal); M65.312 Trigger thumb, left thumb; F41.9 Anxiety disorder, unspecified; F32.A Depression, unspecified; G89.4 Chronic pain syndrome; F17.210 Nicotine dependence, cigarettes, uncomplicated; E66.9 Obesity, unspecified; J40 Bronchitis, not specified as acute or chronic; Z79.899 Other long term (current) drug therapy; Z88.8 Allergy status to other drugs, medicaments and biological substances; Z88.6 Allergy status to analgesic agent; Z98.890 Other specified postprocedural states; Z68.34 Body mass index [BMI] 34.0-34.9, adult
CPT/HCPCS: 26055; J0131; J1100; J1885; J2704; J3010; J3490; J7120; 01810; J2405

== ENCOUNTER 2023-10-01 11:08 | Day surgery (SDC) | payer BC, MEDICAID ==
[2023-10-01] MEDS: Lactated Ringers 1,000 ML IV SCH (11:40)
[2023-10-01] MEDS ORDERED: propofoL 50 ML ONE (13:02)
[2023-10-01] MEDS ORDERED: dexmedeTOMIDine HCl 200 MCG/2 ML SDV ONE (13:11)
[2023-10-01] MEDS ORDERED: fentaNYL 100 MCG/2 ML SDV ONE (13:13)
[2023-10-01] MEDS ORDERED: Lactated Ringers 1,000 ML IV SCH (13:45)
[2023-10-01 13:56] VITALS: BP 102/57; PULSE 63
== END 2023-10-01 14:05 | disposition home or self-care (01) ==
LOC: MW.SDS 11:08
PROVIDERS: ATTEND Surgery
DX: R19.4 Change in bowel habit (principal); F15.91 Other stimulant use, unspecified, in remission; F17.210 Nicotine dependence, cigarettes, uncomplicated; F41.9 Anxiety disorder, unspecified; G89.29 Other chronic pain; R15.9 Full incontinence of feces; R19.7 Diarrhea, unspecified; M51.36 Other intervertebral disc degeneration, lumbar region; M54.50 Low back pain, unspecified; M05.20 Rheumatoid vasculitis with rheumatoid arthritis of unspecified site; M25.511 Pain in right shoulder; M25.512 Pain in left shoulder; E66.9 Obesity, unspecified; Z68.30 Body mass index [BMI] 30.0-30.9, adult; Z88.8 Allergy status to other drugs, medicaments and biological substances; Z79.899 Other long term (current) drug therapy; Z98.890 Other specified postprocedural states
CPT/HCPCS: 45378; J2704; J3010; J7120; 00811; J3490

== ENCOUNTER 2023-11-05 03:48 | Emergency (ER) | payer BC ==
[2023-11-05 04:04] VITALS: BP 136/74; PULSE 86
[2023-11-05] MEDS: Acetaminophen/HYDROcodone 325-5 MG Tab PO ONE (04:07)
[2023-11-05] MEDS: Orphenadrine 60 MG/2 ML Inj IM ONE (04:08)
[2023-11-05] MEDS: Ketorolac 30 MG/ML SDV IM ONE (04:08)
== END 2023-11-05 04:31 | disposition home or self-care (01) ==
LOC: MW.ED 03:48
DX: M54.32 Sciatica, left side (principal); E66.9 Obesity, unspecified; Z68.34 Body mass index [BMI] 34.0-34.9, adult; Z88.8 Allergy status to other drugs, medicaments and biological substances; Z79.899 Other long term (current) drug therapy; Z90.710 Acquired absence of both cervix and uterus
CPT/HCPCS: 96372; 99283; A9270; J1885; J2360